=== PATIENT | male | born 1970 | race Caucasian/White ===

== ENCOUNTER 2017-04-24 12:03 | Emergency (ER) | payer OTHER ==
[~2017-04-24] VITALS: Wt 101.5 kg
[~2017-04-24 12:03] MED LIST: IBUP800T25 PO
[2017-04-24] MEDS ORDERED: morphine 4 MG/ML VIAL IV STA (13:04)
[2017-04-24] MEDS ORDERED: ONDANSETRON 4 MG INJ IV STA (13:04)
[2017-04-24 13:19] LABS: ADD SCAN DIFF NO
[2017-04-24 13:23] LABS: BASOPHILS % 0.3 % (0.0-2.0); EOSINOPHILS # 0.1 10^3/ul (0.0-0.5); EOSINOPHILS % 0.6 % (0.0-7.0); HEMATOCRIT 40.9 % (42.0-52.0); HEMOGLOBIN 14.2 g/dl (14.0-18.0); LYMPHOCYTES # 2.1 10^3/ul (0.8-2.9); LYMPHOCYTES % 22.5 % (15.0-51.0); MEAN CORPUSCULAR HEMOGLOBIN 28.4 pg (29.0-33.0); MEAN CORPUSCULAR HGB CONC 34.7 g/dl (32.0-37.0); MEAN CORPUSCULAR VOLUME 81.8 fl (82.0-101.0); MEAN PLATELET VOLUME 9.6 fl (7.4-10.4); MONOCYTE # 0.6 10^3/ul (0.3-0.9); NEUTROPHIL # 6.6 10^3/ul (1.6-7.5); NEUTROPHILS % 70.2 % (39.0-77.0); PLATELET COUNT 259 10^3/UL (140-415); WHITE BLOOD COUNT 9.5 10^3/ul (4.8-10.8)
[2017-04-24 13:29] LABS: ADD UMIC NO; URINE BILIRUBIN (Dip) NEGATIVE (NEGATIVE); URINE BLOOD (Dip) NEGATIVE (NEGATIVE); URINE COLOR LT. YELLOW (YELLOW); URINE GLUCOSE (Dip) NEGATIVE (NEGATIVE); URINE KETONES (Dip) NEGATIVE (NEGATIVE); URINE LEUKOCYTE ESTERASE (Dip) NEGATIVE (NEGATIVE); URINE NITRITE (Dip) NEGATIVE (NEGATIVE); URINE TOTAL PROTEIN (Dip) NEGATIVE (NEGATIVE); URINE UROBILINOGEN (Dip) 0.2 E.U./dL (0.1-1.0)
[2017-04-24] MEDS ORDERED: SOD CHLORIDE 0.9% 1,000 ML IV ONE (13:30)
[2017-04-24 13:44] LABS: ALBUMIN/GLOBULIN RATIO 1.66; BILIRUBIN,INDIRECT 0.3 mg/dl (0-1.1); BILIRUBIN,TOTAL 0.3 mg/dl (0.2-1.3); CALCIUM 9.5 mg/dl (8.4-10.2); CREATININE 0.78 mg/dl (0.61-1.24); POTASSIUM 4.6 mmol/L (3.5-5.1)
[2017-04-24] MEDS ORDERED: ONDA8TAB14 PO (14:57)
[2017-04-24] MEDS ORDERED: HYDR-902 PO (14:57)
--- NOTE | 2017-04-24 15:10 | ERD ---
ER Documentation Chief Complaint Date/Time DATE: 04/24/17 TIME: 14:59 Chief Complaint LUQ AP SINCE THIS AM. NO VOMITING. NAUSEA. NO DIARRHEA. NO DAYNE/DYSURIA HPI 46-year-old male complaining of left upper quadrant abdominal pain since this morning. Patient stated the pain had a gradual onset, shortly after eating yogurt. Pain is becoming increasingly strong. Is not sharp and constant. Patient has history of pancreatitis, and states the pain feels just the same as last time. Denies nausea, vomiting, diarrhea. Denies fever or chills. Denies alcohol use. ROS All systems reviewed and are negative except as per history of present illness. Medications Home Meds Active Scripts Ondansetron (Ondansetron Odt) 8 Mg Tab.rapdis, 8 MG PO Q6H Y for NAUSEA AND/OR VOMITING, #10 TAB Prov:CHRISTIANO REYES. [employer] 04/24/17 Hydrocodone/Acetaminophen (Citronelle 10-325 Tablet) 1 Each Tablet, 1 TAB PO Q6H Y for SEVERE PAIN LEVEL 7-10, #7 TAB Prov:CHRISTIANO REYES. [employer] 04/24/17 Reported Medications Ibuprofen* (Motrin*) 800 Mg Tab, 800 MG PO Q6H Y for PAIN, TAB 10/12/15 Allergies Allergies: Coded Allergies: No Known Allergies (Verified Allergy, Unknown, 10/12/15) pt currently taking fish oil. does not have any allergy to it PMhx/Soc History of Surgery: Yes (HEMORROID X2, LEFT ELBOW, RIGHT SHOULDER) Anesthesia Reaction: No Hx Neurological Disorder: No Hx Respiratory Disorders: No Hx Cardiac Disorders: Yes (HTN, HYPERLIPIDEMIA) Hx Psychiatric Problems: No Hx Miscellaneous Medical Probl: No Hx Alcohol Use: No Hx Substance Use: No Hx Tobacco Use: Yes (5 CIG WHEN HE WORKS) Smoking Status: Never smoker Physical Exam Vitals Vital Signs Date Time Temp Pulse Resp B/P Pulse Ox O2 Delivery O2 Flow Rate FiO2 04/24/17 12:04 98.6 92 21 168/88 99 Physical Exam General: Well-developed, well-nourished, conscious and coherent, in no distress Skin: Warm and dry without rash, good texture and turgor Head: Normocephalic without evidence of trauma Eyes: Sclera and conjunctivae normal; pupils equal, round, and reactive to light; extraocular movements are intact Neck: Supple without meningismus or adenopathy. Carotids are equal. Trachea midline. No bruits or JVD Chest: Normal AP diameter. Good expansion without retractions. Nontender. Lungs are clear to auscultate bilaterally with good tidal volume Heart: Regular rate and rhythm. No murmur, rub, or gallops heard Abdomen: Obese, left upper quadrant tenderness without masses, guarding, or rebound. Bowel sounds are active. No hepatosplenomegaly Back: Without spinal or CVA tenderness Extremities: Full range of motion. Good strength bilaterally. No clubbing, cyanosis, or edema. Peripheral pulses are intact. Sensation intact Neuro: Alert and oriented 4, GCS 15. Cranial nerves grossly intact. Motor and sensory exams nonfocal. Moves all extremities. Speech clear. Gait normal Result Diagram: 04/24/17 1310 04/24/17 1310 Results 24 hrs Laboratory Tests Test 04/24/17 13:10 White Blood Count 9.510^3/ul Red Blood Count 5.0010^6/ul Hemoglobin 14.2g/dl Hematocrit 40.9% Mean Corpuscular Volume 81.8fl Mean Corpuscular Hemoglobin 28.4pg Mean Corpuscular Hemoglobin Concent 34.7g/dl Red Cell Distribution Width 13.0% Platelet Count 35222^3/UL Mean Platelet Volume 9.6fl Neutrophils % 70.2% Lymphocytes % 22.5% Monocytes % 6.0% Eosinophils % 0.6% Basophils % 0.3% Nucleated Red Blood Cells % 0.0/100WBC Neutrophils # 6.610^3/ul Lymphocytes # 2.110^3/ul Monocytes # 0.610^3/ul Eosinophils # 0.110^3/ul Basophils # 0.010^3/ul Nucleated Red Blood Cells # 0.010^3/ul Urine Color LT. YELLOW Urine Clarity CLEAR Urine pH 6.0 Urine Specific [place] 1.015 Urine Ketones NEGATIVE Urine Nitrite NEGATIVE Urine Bilirubin NEGATIVE Urine Urobilinogen 0.2 E.U./dL Urine Leukocyte Esterase NEGATIVE Urine Hemoglobin NEGATIVE Urine Glucose NEGATIVE% Urine Total Protein NEGATIVE Sodium Level 139mmol/L Potassium Level 4.6mmol/L Chloride Level 105mmol/L Carbon Dioxide Level 26mmol/L Anion Gap 13 Blood Urea Nitrogen 11mg/dl Creatinine 0.78mg/dl Glucose Level 96mg/dl Calcium Level 9.5mg/dl Total Bilirubin 0.3mg/dl Direct Bilirubin 0.00mg/dl Indirect Bilirubin 0.3mg/dl Aspartate Amino Transf (AST/SGOT) 22IU/L Alanine Aminotransferase (ALT/SGPT) 42IU/L Alkaline Phosphatase 83IU/L Total Protein 8.0g/dl Albumin 5.0g/dl Globulin 3.00g/dl Albumin/Globulin Ratio 1.66 Lipase 676U/L Current Medications Medications (Trade) Dose Ordered Sig/Cj Route PRN Reason Start Time Stop Time Status Last Admin Dose Admin Sodium Chloride (NS) 1,000 ml @ 1,000 mls/hr Q1H ONCE IV 04/24/17 13:30 04/24/17 14:29 DC 04/24/17 13:44 Morphine Sulfate (morphine) 4 mg ONCE STAT IV 04/24/17 13:04 04/24/17 13:05 DC 04/24/17 13:45 Ondansetron HCl (Zofran Inj) 4 mg ONCE STAT IV 04/24/17 13:04 04/24/17 13:05 DC 04/24/17 13:44 Procedures/MDM 46-year-old male with history of pancreatitis in the ED today for left upper quadrant pain 1 day. Morphine and Zofran IV as well as 1 L normal saline bolus given to the patient in the ED. CBC, CMP, lipase, and UA are obtained. All are unremarkable except for lipase of 679. However, this did not meet criteria for acute pancreatitis. Patient is able to maintain p.o. fluids in the ED. Patient appears well, stable for discharge and outpatient management. Medical decision making shared with patient and family. Education provided to patient and family. Patient and family expressed understanding of the plan. Medications on discharge: Citronelle, Zofran. Follow-up: Primary care provider tomorrow or return to ED if worse. The case was reviewed and discussed with Dr. Toth, who agrees with the plan of care including labs, treatment, and advanced imaging as appropriate. Departure Diagnosis: Primary Impression: Abdominal pain Abdominal location: left upper quadrant Qualified Code: R10.12 - Left upper quadrant pain Condition: Stable Patient Instructions: Abdominal Pain Referrals: HUSSAIN BRAVO (PCP) Additional Instructions: FOLLOW UP WITH YOUR PRIMARY CARE PHYSICIAN TOMORROW.Return to this facility if you are not improving as expected. CHRISTIANO REYES NP Apr 24, 2017 15:10
== END 2017-04-24 15:37 | disposition home or self-care (01) ==
LOC: FTE 12:03 → E/R 15:37
DX: R10.12 Left upper quadrant pain (principal); R11.0 Nausea; I10 Essential (primary) hypertension; Z87.891 Personal history of nicotine dependence
CPT/HCPCS: 80053; 81003; 83690; 85025; 96361; 96374; 96375; 99284; J2270; J2405; J7030